=== PATIENT | female | born 1985 | race African-American/Black ===

== ENCOUNTER 2018-01-24 12:48 | Emergency (ER) | payer MEDICAID ==
[~2018-01-24] VITALS: Ht 160 cm; Wt 118.8 kg
[2018-01-24 13:02] VITALS: BP 137/84
--- NOTE | 2018-01-24 13:53 | Emergency Room Report ---
History of Present Illness General Chief Complaint: Pain Source: Patient Present Illness HPI 32-year-old female patient presents to ER complaining of right pinky finger pain status post one day. Reports that she slammed her finger on a bottle yesterday. Reports that she went to the ER but was told that they don't take her concerned so she left. Reports she is right-hand dominant. Denies open wounds or bleeding, denies nail avulsion. Reports unable to move fingers secondary to pain. Denies hitting her head or loss of consciousness. Denies other acute symptoms. Allergies: Coded Allergies: No Known Allergies (Unverified , 01/24/18) Patient History Past Medical History: see triage record Last Menstrual Period: 12/27/17 Reviewed Nursing Documentation: PMH: Agreed; PSxH: Agreed Nursing Documentation-PMH Past Medical History: No History, Except For Hx Hypertension: Yes Review of Systems All Other Systems: negative except mentioned in HPI Physical Exam Vital Signs Date Time Temp Pulse Resp B/P (MAP) Pulse Ox O2 Delivery O2 Flow Rate FiO2 01/24/18 13:02 98.7 62 18 137/84 96 Room Air 98.8 Sp02 EP Interpretation: reviewed, normal General Appearance: well appearing, no apparent distress, alert, GCS 15, non- toxic Head: normocephalic, atraumatic Eyes: bilateral eye normal inspection, bilateral eye PERRL ENT: hearing grossly normal, normal pharynx, no angioedema, normal voice, uvula midline, moist mucus membranes Neck: full range of motion Respiratory: lungs clear, normal breath sounds, no rhonchi, no respiratory distress, no accessory muscle use, no wheezing, speaking full sentences Cardiovascular #1: regular rate, rhythm, no edema Cardiovascular #2: 2+ radial (R), 2+ radial (L) Musculoskeletal: back normal, digits/nails normal, gait/station normal, non- tender, decreased range of motion - secondary to pain, swelling, other - ecchymosis, no deformity, tender - right small finger finger over the middle and distal phalanx, no subungual hematoma, nail bed intact Neurologic: alert, oriented x3, responsive, motor strength/tone normal, sensory intact Medical Decision Making PA Attestation Dr. Marshall is my supervising Physician whom patient management has been discussed with. Diagnostic Impression: Primary Impression: Injury of little finger ER Course Pt. presents to the ED c/o right small finger pain status post injury. Ddx considered but are not limited to fracture, sprain, strain, contusion, dislocation. No erythema, no warmth to touch, no fever, nontoxic appearing, low suspicion for septic joint. Vital signs: are WNL, pt. is afebrile Ordered X-ray and pain medication. ER COURSE Provided with pain medication. CURES reviewed. decreased range of motion likely due to swelling and pain. Low suspicion for tendon rupture due to physical exam and description of injury event. An X-ray of the right hand shows no acute fracture or disease, for the official reading. Informed patient likely contusion causing symptoms. Informed patient possible occult fracture, follow-up with PCP to discuss further treatment and repeat imaging in 1 week. Splint was applied to the right small finger was checked afterwards by me showing good alignment and support with distal neurovascular functioning intact. Patient instructed on RICE method: rest, ice, compression, elevation. Patient instructed to be NWB. Followup with primary care provider. Discuss referral to ortho/pain management/ PT as needed. Discuss further imaging with MRI/CT as needed. DISCHARGE: -Rx provided for Tylenol for pain symptoms. At this time pt. is stable for d/c to home. Patient is resting comfortably, in no acute distress, nontoxic appearing, talking without difficulty. Will provide printed patient care instructions, and any necessary prescriptions. Patient instructed to follow with primary care provider in 3 - 5 days and to request further follow-up as needed. Care plan and follow up instructions have been discussed with the patient prior to discharge. Take medications as directed. Patient questions asked and answered. Patient reports understanding and agreement to treatment plan. ER precautions given, patient instructed to return to ER immediately for any new or worsening of symptoms. - Please note that this Emergency Department Report was dictated using [employer] heat seal operator technology software, occasionally this can lead to erroneous entry secondary to interpretation by the dictation equipment. Other X-Ray Diagnostic Results Other X-Ray Diagnostic Results : X-Ray ordered: right hand # of Views/Limited Vs Complete: 3 View Indication: Pain EP Interpretation: Yes PA Xray: Interpretation reviewed, by supervising MD, and agrees with findings. Interpretation: no dislocation, no soft tissue swelling, no fractures Impression: No acute disease MAGALYS Scribe Text Ramone Vigil PA-C Last Vital Signs Date Time Temp Pulse Resp B/P (MAP) Pulse Ox O2 Delivery O2 Flow Rate FiO2 01/24/18 13:02 98.7 62 18 137/84 96 Room Air 98.8 Disposition: HOME, SELF-CARE Condition: Stable Scripts Acetaminophen* (TYLENOL EXTRA STRENGTH*) 500 Mg Tablet 500 MG ORAL Q8H PRN for Prn Headache/Temp > 101, #30 TAB 0 Refills Prov: Praveen Vigil 01/24/18 Patient Instructions: Crush Injury, Fingers or Toes, [id number] Additional Instructions: Patient instructed to follow up with primary care provider and discuss further referral to orthopedics. Patient instructed on RICE method: rest, ice, compression, elevation. Patient instructed to NWB. Take medications as directed. Patient questions asked and answered. ER precautions given, patient instructed to return to ER immediately for any new or worsening of symptoms. Praveen Vigil Jan 24, 2018 13:53
[2018-01-24] MEDS ORDERED: Tylenol #3 tab (300mg/30mg) ORAL ONE (14:00)
[2018-01-24] MEDS ORDERED: TYLENOL EXTRA500 MG ORAL (14:42)
--- NOTE | 2018-01-24 15:54 | Diagnostic Imaging Report ---
Indication: Pain on right fifth finger Technique: 3 views right hand Comparison: none Findings: No acute fractures. No dislocations. Joint spaces are preserved. Impression: No acute process
[2018-01-24 16:08] VITALS: BP 137/84
[2018-01-25] MEDS ORDERED: Norco 5mg/325mg tab ONE (18:42)
== END 2018-01-24 15:00 | disposition home or self-care (01) ==
LOC: EMR 13:35
DX: S69.91XA Unspecified injury of right wrist, hand and finger(s), initial encounter (principal); W22.8XXA Striking against or struck by other objects, initial encounter; Y92.9 Unspecified place or not applicable; I10 Essential (primary) hypertension
CPT/HCPCS: 99283